=== PATIENT | female | born 1960 | race Caucasian/White ===

== ENCOUNTER 2022-12-12 21:21 | Emergency (ER) | payer BC ==
[~2022-12-12] VITALS: Ht 160 cm; Wt 102.1 kg
--- NOTE | 2022-12-12 22:00 | NUR ---
BIBH FROM HOME. TRIPPED AND FELL ON PAVEMENT HITTING HER LEFT UPPER EXT -ROM ON LUE. -LOC PAIN 04/02.
[2022-12-12] MEDS ORDERED: ONDANSETRON 4 MG TAB.RAPDIS ONE (22:26)
[2022-12-12] MEDS ORDERED: HYDROCODONE/APAP 5/325MG TABLET ONE (22:26)
[2022-12-12] MEDS ORDERED: HYDROCODONE/APAP 5/325MG TABLET PO ONE (22:30)
[2022-12-12] MEDS ORDERED: ONDANSETRON 4 MG TAB.RAPDIS SL ONE (22:30)
--- NOTE | 2022-12-12 22:58 | NUR ---
X-RAY AT BEDSIDE
--- NOTE | 2022-12-13 00:05 | NUR ---
PROVIDED PT WITH IMAGING CD
[2022-12-13] MEDS ORDERED: HYDR-3972 PO (00:42)
[2022-12-13] MEDS ORDERED: ONDA4TAB5 PO (00:42)
[2022-12-13 00:50] VITALS: BP 159/101
== END 2022-12-13 00:51 | disposition home or self-care (01) ==
LOC: ER 21:30
DX: S42.212A Unspecified displaced fracture of surgical neck of left humerus, initial encounter for closed fracture (principal); I10 Essential (primary) hypertension; E78.5 Hyperlipidemia, unspecified; E03.9 Hypothyroidism, unspecified; W01.198A Fall on same level from slipping, tripping and stumbling with subsequent striking against other object, initial encounter; Y93.89 Activity, other specified; Y92.89 Other specified places as the place of occurrence of the external cause; Y99.8 Other external cause status
CPT/HCPCS: 99283; 73030; Q0162